=== PATIENT | male | born 1935 | race Caucasian/White ===

== ENCOUNTER 2020-11-16 15:17 | Emergency (ER) | payer MEDICARE ==
[~2020-11-16 15:17] MED LIST: AMLODIPINE BESY10 MG PO; ASPIRIN EC81 MG PO; ATORVASTATIN CA20 MG PO; CEFDINIR250 MG/5 M PO; LASIX20 MG PO; LATANOPROST2.5 ML EYEBOTH; LEVOFLOXAC250 MG/10 PO; LEVOTHYROXINE88 MCG PO; METOPROLOL TAR100 MG PO; OFLOXACIN5 ML EYEBOTH; OMEPRAZOLE40 MG PO; PREDNISOLO15 MG/5 ML PO; TIMOLOL MALEATE15 M1 EYEBOTH
[2020-11-16 16:25] LABS: BASOPHIL 0.5 % (0-2); EOSINOPHIL 3.1 % (0-7); HCT 41.1 % (42.0-52.0); HGB 13.3 g/dl (13.2-18.0); LYMPHOCYTE 23.2 % (15-48); MCH 34.5 pg (25.0-31.0); MCHC 32.4 g/dL (32.0-36.0); MCV 106.5 fL (78.0-100.0); MONOCYTE 5.7 % (0-12); MPV 10.6 fL (6.0-9.5); NEUTROPHIL 67.3 % (41-80); NRBC 0; PLT 211 K/uL (150-400); RBC 3.86 M/uL (4.70-6.00); RDW 16.9 % (11.5-14.0)
[2020-11-16 16:29] LABS: INR 1.27 (0.9-1.2); PROTHROMBIN TIME 15.1 SECONDS (11.4-13.6); PTT 31.4 SECONDS (22.2-34.7)
[2020-11-16 16:37] LABS: ALBUMIN 3.6 g/dL (3.4-5.0); BILIRUBIN - TOTAL 1.2 mg/dL (0.2-1.0); BUN/CREAT RATIO (CALC) 41.2 RATIO; CREATININE 1.53 mg/dL (0.67-1.17); GLOBULIN (CALCULATION) 5.3 g/dL; POTASSIUM 5.1 mmol/L (3.5-5.1); TOTAL PROTEIN 8.9 g/dL (6.4-8.2)
[2020-11-16 16:46] LABS: CKMB 0.7 ng/mL (0.0-3.6)
[2020-12-07] MEDS ORDERED: NORCO 5-325 TA1 EACH PO (13:41)
== END 2020-11-16 17:26 | disposition home or self-care (01) ==
LOC: FER 15:17
PROVIDERS: Emergency Medicine
DX: I50.9 Heart failure, unspecified (principal); N18.9 Chronic kidney disease, unspecified; I48.91 Unspecified atrial fibrillation; Z85.01 Personal history of malignant neoplasm of esophagus
CPT/HCPCS: 36415; 71046; 80053; 82553; 83880; 84484; 85025; 85610; 85730; 93005; J1940

== ENCOUNTER 2020-12-01 22:43 | Inpatient (IN) | payer MEDICARE ==
[2020-12-01 23:47] LABS: BASOPHIL 0.3 % (0-2); EOSINOPHIL 0.7 % (0-7); HCT 36.7 % (42.0-52.0); HGB 11.8 g/dl (13.2-18.0); LYMPHOCYTE 17.8 % (15-48); MCH 34.3 pg (25.0-31.0); MCHC 32.2 g/dL (32.0-36.0); MCV 106.7 fL (78.0-100.0); MONOCYTE 8.3 % (0-12); MPV 10.7 fL (6.0-9.5); NEUTROPHIL 72.7 % (41-80); NRBC 0; PLT 151 K/uL (150-400); RBC 3.44 M/uL (4.70-6.00); RDW 16.5 % (11.5-14.0); WBC 5.9 K/uL (4.0-10.5)
[2020-12-02 00:12] LABS: ALBUMIN 2.9 g/dL (3.4-5.0); BILIRUBIN - TOTAL 0.9 mg/dL (0.2-1.0); CREATININE 1.37 mg/dL (0.67-1.17); GLOBULIN (CALCULATION) 4.8 g/dL; LACTIC ACID 1.3 mmol/L (0.4-1.9); POTASSIUM 4.1 mmol/L (3.5-5.1); TOTAL PROTEIN 7.7 g/dL (6.4-8.2)
[2020-12-02 00:58] LABS: BILIRUBIN NEGATIVE (NEGATIVE); BLOOD NEGATIVE Ery/uL (NEGATIVE); CLARITY CLEAR (CLEAR); COLOR YELLOW (YELLOW); GLUCOSE (U) NORMAL (NORMAL); LEUKOCYTES NEGATIVE Leu/uL (NEGATIVE); NITRITE NEGATIVE (NEGATIVE); PROTEIN NEGATIVE (NEGATIVE); SPECIFIC GRAVITY 1.015 (1.001-1.030); UROBILINOGEN 0.2 mg/dL (0.2-1.0)
[2020-12-02 01:18] LABS: FT4 (FREE T4) 0.9 ng/dL (0.76-1.46)
[2020-12-02 07:11] LABS: ALBUMIN 2.7 g/dL (3.4-5.0); BILIRUBIN - TOTAL 0.9 mg/dL (0.2-1.0); BUN/CREAT RATIO (CALC) 45.5 RATIO; CREATININE 1.34 mg/dL (0.67-1.17); GLOBULIN (CALCULATION) 4.6 g/dL; POTASSIUM 3.8 mmol/L (3.5-5.1); TOTAL PROTEIN 7.3 g/dL (6.4-8.2)
[2020-12-02] MEDS ORDERED: BUMEX1 MG PO ×2 (11:41→11:42)
[2020-12-02] MEDS ORDERED: NORVASC5 MG PO (11:41)
[2020-12-02] MEDS ORDERED: SYNTHROID100 MCG PO (11:43)
[2020-12-03 03:54] LABS: BASOPHIL 0.3 % (0-2); EOSINOPHIL 0.7 % (0-7); HCT 37.4 % (42.0-52.0); HGB 12.3 g/dl (13.2-18.0); LYMPHOCYTE 20.4 % (15-48); MCHC 32.9 g/dL (32.0-36.0); MCV 106.6 fL (78.0-100.0); MPV 10.9 fL (6.0-9.5); NEUTROPHIL 70.4 % (41-80); NRBC 0; PLT 158 K/uL (150-400); RBC 3.51 M/uL (4.70-6.00); RDW 16.4 % (11.5-14.0)
[2020-12-03 04:04] LABS: BILIRUBIN - TOTAL 0.9 mg/dL (0.2-1.0); C-REACTIVE PROTEIN 6.8 mg/dL (<=0.90); CREATININE 1.21 mg/dL (0.67-1.17); GLOBULIN (CALCULATION) 5.2 g/dL; TOTAL PROTEIN 8.2 g/dL (6.4-8.2)
[2020-12-03 10:34] LABS: WBC (FLUID) 375 WBC/uL
[2020-12-03 11:04] LABS: CLARITY (FLUID) SLIGHTLY HAZY; COLOR (FLUID) YELLOW; RBC (FLUID) 357 RBC/uL
[2020-12-04 07:00] LABS: BASOPHIL 0 % (0-2); EOSINOPHIL 0.2 % (0-7); HCT 34.3 % (42.0-52.0); LYMPHOCYTE 12.3 % (15-48); MCH 34.4 pg (25.0-31.0); MCHC 32.1 g/dL (32.0-36.0); MCV 107.2 fL (78.0-100.0); MONOCYTE 5.6 % (0-12); MPV 10.8 fL (6.0-9.5); NEUTROPHIL 81.3 % (41-80); NRBC 0; PLT 122 K/uL (150-400); RDW 16.2 % (11.5-14.0); WBC 5.2 K/uL (4.0-10.5)
[2020-12-04 07:43] LABS: BUN/CREAT RATIO (CALC) 42.6 RATIO; CREATININE 1.15 mg/dL (0.67-1.17); POTASSIUM 3.5 mmol/L (3.5-5.1)
[2020-12-05 09:29] LABS: BUN/CREAT RATIO (CALC) 43.1 RATIO; CREATININE 1.16 mg/dL (0.67-1.17); POTASSIUM 3.1 mmol/L (3.5-5.1)
[2020-12-06 05:25] LABS: BASOPHIL 0.1 % (0-2); EOSINOPHIL 0 % (0-7); HCT 39.7 % (42.0-52.0); HGB 12.9 g/dl (13.2-18.0); LYMPHOCYTE 5.2 % (15-48); MCH 33.9 pg (25.0-31.0); MCHC 32.5 g/dL (32.0-36.0); MCV 104.5 fL (78.0-100.0); MONOCYTE 4.3 % (0-12); MPV 10.7 fL (6.0-9.5); NEUTROPHIL 89.7 % (41-80); NRBC 0; PLT 165 K/uL (150-400); RDW 15.9 % (11.5-14.0)
[2020-12-06 05:30] LABS: WBC 13.6 K/uL (4.0-10.5)
[2020-12-06 05:49] LABS: BUN 59 mg/dL (7-18); BUN/CREAT RATIO (CALC) 50.9 RATIO; C-REACTIVE PROTEIN >18.00 mg/dL (<=0.90); CHLORIDE 104 mmol/L (98-107); CO2 (BICARBONATE) 36 mmol/L (21-32); CREATININE 1.16 mg/dL (0.67-1.17); GLUCOSE 104 mg/dL (74-106); POTASSIUM 3.5 mmol/L (3.5-5.1)
[2020-12-06] MEDS ORDERED: VITAMIN D325 MC1 GT (12:18)
[2020-12-06] MEDS ORDERED: DEXAMETHASONE 2M2 MG PO (12:18)
[2020-12-06] MEDS ORDERED: TOPROL XL 50 MG50 MG PO (12:18)
[2020-12-06] MEDS ORDERED: SYNTHROID112 MCG GT (12:18)
[2020-12-06] MEDS ORDERED: BUMEX1 MG PO (12:18)
[2020-12-06] MEDS ORDERED: CEFDINIR300 MG GT (12:18)
[2020-12-06] MEDS ORDERED: MELATONIN5 M2 GT (12:18)
[2020-12-06] MEDS ORDERED: ASCORBIC ACID500 MG GT (12:18)
[2020-12-06] MEDS ORDERED: AZITHROMYCIN250 MG GT (12:18)
[2020-12-07] MEDS ORDERED: NORCO 5-325 TA1 EACH PO (13:41)
== END 2020-12-06 17:30 | disposition home health service (06) | DRG 177 ==
LOC: FER 22:43 → FTCU 12-02 01:48
PROVIDERS: Emergency Medicine Emergency Medical Services; Nurse Practitioner; ADMIT Allergy & Immunology Allergy
PROC: 8E0ZXY6 Isolation (ICD-10-PCS; 2020-12-02)
PROC: XW033E5 Introduction of Remdesivir Anti-infective into Peripheral Vein, Percutaneous Approach, New Technology Group 5 (ICD-10-PCS; 2020-12-02)
PROC: 3E0333Z Introduction of Anti-inflammatory into Peripheral Vein, Percutaneous Approach (ICD-10-PCS; 2020-12-02)
PROC: 0W9B3ZZ Drainage of Left Pleural Cavity, Percutaneous Approach (ICD-10-PCS; principal; 2020-12-03)
PROC: 0W993ZZ Drainage of Right Pleural Cavity, Percutaneous Approach (ICD-10-PCS; 2020-12-03)
PROC: 0DP6XUZ Removal of Feeding Device from Stomach, External Approach (ICD-10-PCS; 2020-12-06)
PROC: 0DH67UZ Insertion of Feeding Device into Stomach, Via Natural or Artificial Opening (ICD-10-PCS; 2020-12-06)
DX: U07.1 COVID-19 (principal); J96.01 Acute respiratory failure with hypoxia; I21.A1 Myocardial infarction type 2; J12.82 Pneumonia due to coronavirus disease 2019; K94.23 Gastrostomy malfunction; N17.9 Acute kidney failure, unspecified; J44.1 Chronic obstructive pulmonary disease with (acute) exacerbation; J44.0 Chronic obstructive pulmonary disease with (acute) lower respiratory infection; Y83.8 Other surgical procedures as the cause of abnormal reaction of the patient, or of later complication, without mention of misadventure at the time of the procedure; K94.20 Gastrostomy complication, unspecified; E03.9 Hypothyroidism, unspecified; I11.0 Hypertensive heart disease with heart failure; M19.90 Unspecified osteoarthritis, unspecified site; I50.9 Heart failure, unspecified; I48.91 Unspecified atrial fibrillation; Z85.89 Personal history of malignant neoplasm of other organs and systems; Z86.73 Personal history of transient ischemic attack (TIA), and cerebral infarction without residual deficits; I48.0 Paroxysmal atrial fibrillation
CPT/HCPCS: 36415; 36600; 71045; 71250; 74018; 80048; 80053; 81003; 82728; 82803; 83605; 83615; 83880; 84145; 84157; 84439; 84443; 84484; 85025; 85379; 86140; 87040; 89051; 93005; 94640; 97116; 97162; 97530-GP; C9399; J1100; J1650; J1940; J2405; J7050; U0002